=== PATIENT | male | born 1985 | race African-American/Black ===

== ENCOUNTER 2017-11-05 18:33 | Emergency (ER) | payer MEDICAID ==
[~2017-11-05] VITALS: Ht 177.8 cm; Wt 86.0 kg
[~2017-11-05 18:33] MED LIST: BACDS PO; HYDR1TAB PO; NO HOME MEDS
[2017-11-05] MEDS ORDERED: clindamycin 150mg capsule PO ONE (20:00)
[2017-11-05] MEDS ORDERED: CLIN-100 PO (20:01)
[2017-11-05 20:33] VITALS: BP 162/114
== END 2017-11-05 20:34 | disposition home or self-care (01) ==
LOC: ER 18:34
DX: L08.9 Local infection of the skin and subcutaneous tissue, unspecified (principal); H00.012 Hordeolum externum right lower eyelid; J03.90 Acute tonsillitis, unspecified; Z56.0 Unemployment, unspecified; Z79.2 Long term (current) use of antibiotics
CPT/HCPCS: 93005; 99283

== ENCOUNTER 2017-11-26 12:02 | Emergency (ER) | payer MEDICAID ==
[~2017-11-26] VITALS: Ht 177.8 cm; Wt 84.9 kg
[2017-11-26] MEDS ORDERED: LIDOcaine 1% 30ml vial IJ ONE (12:55)
[2017-11-26] MEDS ORDERED: CEPH500C5 PO (13:39)
[2017-11-26] MEDS ORDERED: SULF1TAB49 PO (13:39)
[2017-11-26 13:46] VITALS: BP 139/97
== END 2017-11-26 13:49 | disposition home or self-care (01) ==
LOC: ER 12:03
DX: L02.413 Cutaneous abscess of right upper limb (principal); J34.0 Abscess, furuncle and carbuncle of nose; F17.200 Nicotine dependence, unspecified, uncomplicated; F12.10 Cannabis abuse, uncomplicated; Z56.0 Unemployment, unspecified; Z86.14 Personal history of Methicillin resistant Staphylococcus aureus infection; Z79.899 Other long term (current) drug therapy
CPT/HCPCS: 10060; 87070; 87077; 87186; 99284; A6255; A6449; J3490

== ENCOUNTER 2019-04-05 13:37 | Emergency (ER) | payer MEDICAID ==
[~2019-04-05] VITALS: Ht 177.8 cm; Wt 91.1 kg
[2019-04-05 13:41] VITALS: BP 169/110
[2019-04-05] MEDS ORDERED: penicillin G benzathine 1.2 million unit/2ml syringe IM ONE (14:45)
[2019-04-05] MEDS ORDERED: CefTRIAXone 250MG IM Kit w/LIDOcaine IM ONE (14:50)
[2019-04-05] MEDS ORDERED: azithromycin 250mg tablet PO ONE (14:50)
[2019-04-07 11:30] LABS: RPR Reactive (Non Reactive)
== END 2019-04-05 15:50 | disposition home or self-care (01) ==
LOC: ER 13:37
DX: Z20.2 Contact with and (suspected) exposure to infections with a predominantly sexual mode of transmission (principal); Z79.899 Other long term (current) drug therapy; Z56.0 Unemployment, unspecified; Z86.14 Personal history of Methicillin resistant Staphylococcus aureus infection
CPT/HCPCS: 36415; 86592; 87491; 87591; 96372; 99283; J0561; J0696

== ENCOUNTER 2025-04-16 17:21 | Emergency (ER) | payer MEDICAID ==
[~2025-04-16] VITALS: Ht 177.8 cm; Wt 82.2 kg
[~2025-04-16 17:21] MED LIST changes: -BACDS PO; +SULF1TAB45 PO
[2025-04-16 17:29] VITALS: BP 159/93; PULSE 76; RESP 15; TEMP 98; O2SAT 99
--- NOTE | 2025-04-16 17:38 | Physician Documentation ---
HPI ~ General Chief Complaint: Medication Request Stated Complaint: HP/NEED MEDICATION Primary Medical Doctor: [facility] History of Present Illness HPI Comments 39 Year old male presents to the ED after recently being released from [place] [facility]. States that he is out of his high blood pressure medication and cholesterol. Denies any chest pain shortness of breath Patient states he takes amlodipine hydrochlorothiazide lisinopril and atorvastatin Without Medications Since: Apr 16, 2025 Medication Reconciliation Allergies: Coded Allergies: No Known Allergies (Unverified , 12/22/11) Scheduled Amlodipine Besylate (Norvasc), 1 TAB PO DAILY Atorvastatin Calcium* (Lipitor*), 1 TAB PO DAILY Hydrochlorothiazide (Hydrochlorothiazide), 1 TAB PO DAILY Hydrocodone/Acetaminophen (Vicodin 5-500 Tablet), 1 TAB PO Q6H Lisinopril (Lisinopril), 1 TAB PO BID Sulfamethoxazole/Trimethoprim (Septra Ds Tab), 1 EACH PO BID Miscellaneous Medications Home Med List (No Home Medications), (Reported) Past Medical History Past Medical History: Hypertension, MRSA Abscess Past Surgical History: noncontributory Alcohol Use: Occasionally Drug Use: none, marijuana Lives with: Family Lives In: Home Occupation: unemployed Review of Systems All Other Systems at this time: Reviewed and Negative ROS As stated above in the HPI, otherwise all systems are reviewed and negative. Physical Exam Physical Exam Vital Signs: Temperature: 98.0, Source: Temporal, Heart Rate: 76, Respiratory Rate: 15, BP: 159/93, Pulse Oximetry: 99, Weight: 82.150 Physical Exam General: Alert, no apparent distress. Respiratory: Lungs clear, no respiratory distress. Cardiovascular: Regular rate and rhythm, no murmurs. Extremities: Normal range of motion, no deformity. Neurologic: Oriented x4. Psychiatric: Normal mood and affect. Skin: Normal color, warm and dry. No edema, no ecchymosis. Progress Results/Orders Results/Orders Vital Signs 04/16/25 17:29 Temp 98.0 Pulse 76 Resp 15 B/P (MAP) 159/93 Pulse Ox 99 Medical Decision Making Findings The patient's medications as requested he does not present with any signs of acute coronary syndrome. giving him 30 days of med but he is going to need to find a primary care Differential Dx:Considerations: Include: Adverse circumstances, Economic, Psychosocial, Medical services unavail., Medication refill, Medication non- compliance, Other Departure Disposition: HOME / SELF CARE / HOMELESS Impression: Primary Impression: General medical exam Condition: Stable Discharge Instructions: Medicine Refill at the Emergency Department Referrals: NO PRIMARY CARE PROVIDER (PCP) Prescriptions Atorvastatin Calcium* (Lipitor*) 20 Mg Tablet 1 TAB PO DAILY for 30 Days, #30 TAB Prov: PARRISH SIMPSON NP 04/16/25 Amlodipine Besylate (Norvasc) 5 Mg Tablet 1 TAB PO DAILY for 30 Days, #30 TAB 0 Refills Prov: PARRISH SIMPSON NP 04/16/25 Lisinopril (Lisinopril) 20 Mg Tablet 1 TAB PO BID for 30 Days, #30 TAB Prov: PARRISH SIMPSON NP 04/16/25 Hydrochlorothiazide (Hydrochlorothiazide) 25 Mg Tab 1 TAB PO DAILY for 30 Days, #30 TAB 0 Refills Prov: PARRISH SIMPSON NP 04/16/25 Education Educated: Patient Educated regarding: diagnosis Signature Scribe Signature: , Attestation: Scribed for Emergency,Department by Parrish Thompson NP . 04/16/25 23:42 PARRISH SIMPSON NP Apr 16, 2025 17:38
[2025-04-16] MEDS ORDERED: ATOR20TA PO (17:39)
[2025-04-16] MEDS ORDERED: LISI20TA28 PO (17:39)
[2025-04-16] MEDS ORDERED: HYDR25TA5 PO (17:39)
[2025-04-16] MEDS ORDERED: AMLO5TAB4 PO (17:39)
== END 2025-04-16 18:00 | disposition home or self-care (01) ==
LOC: ER 17:21
DX: Z00.8 Encounter for other general examination (principal); I10 Essential (primary) hypertension
CPT/HCPCS: 99283